=== PATIENT | male | born 2000 | race Caucasian/White ===

== ENCOUNTER 2021-10-27 00:23 | Inpatient (IN) | payer SELFPAY ==
[~2021-10-27] VITALS: Ht 170.2 cm; Wt 65.1 kg
[2021-10-27] VITALS (913 sets, daily range): BP systolic 103–115; BP diastolic 67–76; PULSE 73–94; TEMP 97.7–98.1; O2SAT 93–100
--- NOTE | 2021-10-27 01:45 | NUR ---
DURING ADMISSION PT STATED HE RECENTLY MOVED HERE FROM [facility] AND CURRENTLY DOES NOT HAVE A PHARMACY HERE IN [place]. SOCIAL WORK REFERRAL PLACED.
--- NOTE | 2021-10-27 01:45 | NUR ---
PT ADMITTED TO THE UNIT FROM [facility]. PT IS ALERT AND ORIENTED. VSS. PTS BLOOD GLUCOSE AT [facility] WAS ORIGINALLY 1313 AT 1930 10/26. BEFORE TRANSFER PTS BLOOD GLUCOSE WAS APPROXIMATELY 490. PER YESSENIA GERMAIN THE INSULIN DRIP WAS PUT ON STANDBY PRIOR TO ARRIVAL. ON ARRIVAL PTS BLOOD GLUCOSE WAS READING 374. MARCELLUS STILL RECOMMENDED THE INSULIN DRIP REMAIN ON STANDBY DUE TO BLOOD SUGAR CONTINUING TO DECREASE WITHOUT THE INSULIN. PT HAS 1/2 NS WITH 20MEQ OF POTASSIUM RUNNING AT 250ML/HR. PT EDUCATED TO NOT GET UP WITHOUT ASSISTANCE. CALL LIGHT WITHIN REACH. PTS BELONGINGS - PHONE, WALLET (KEPT ON HIS PERSON), JEANS, SHOES, AND SHIRT IN BEDROOM CABINET.
[2021-10-27 02:31] LABS: POTASSIUM 3.6 mmol/L (3.5-4.5)
[2021-10-27 02:37] LABS: BASO # 0.1 K/mm3 (0.0-0.2); BASO % 0.9 % (0.0-2.0); EOS # 0.2 K/mm3 (0.0-0.7); EOS % 1.7 % (0.0-4.0); GRAN # 5.4 K/mm3 (1.4-6.5); GRAN % 55.7 % (42.2-75.2); HEMOGLOBIN 14.2 g/dl (13.5-18.0); LYMPH % 31.4 % (20.0-51.0); MEAN CELL VOLUME 85 fl (80.0-100.0); MEAN CORPUSCULAR HEMOGLOBIN 33 pg (27-31); MEAN CORPUSCULAR HGB CONC 39 g/dl (33.0-37.0); MEAN PLATELET VOLUME 10.4 fl (7.4-10.4); PLATELET COUNT 284 K/mm3 (130-400); RED BLOOD COUNT 4.34 M/mm3 (4.20-5.60); REDCELL DISTRIBUTION WIDTH-CV 11.7 % (11.5-14.5)
[2021-10-27 02:41] LABS: HEMATOCRIT 36.9 % (42.0-52.0)
[2021-10-27 02:44] LABS: CREATININE, serum 1.09 mg/dL (0.72-1.25)
--- NOTE | 2021-10-27 02:45 | NUR ---
PTS BLOOD GLUCOSE READ 346. INSULIN DRIP STILL ON STANDBY AT THIS TIME.
[2021-10-27] MEDS ORDERED: GLUCOPHAGE1000 MG PO (02:46)
[2021-10-27] MEDS ORDERED: LEVEMIR SQ (02:48)
[2021-10-27 06:24] LABS: CALCIUM 7.8 mg/dL (8.4-10.2); CREATININE, serum 0.86 mg/dL (0.72-1.25); MAGNESIUM 1.6 mg/dL (1.6-2.6); PHOSPHOROUS 3.1 mg/dL (2.3-4.7); POTASSIUM 3.2 mmol/L (3.5-4.5)
== END 2021-10-27 17:49 | disposition home or self-care (01) | DRG 638 ==
LOC: IMCU 00:23 → ICU 01:35
PROVIDERS: Student in an Organized Health Care Education/Training Program; ADMIT Internal Medicine
DX: E11.00 Type 2 diabetes mellitus with hyperosmolarity without nonketotic hyperglycemic-hyperosmolar coma (NKHHC) (principal); N17.9 Acute kidney failure, unspecified; Z79.4 Long term (current) use of insulin; Z23 Encounter for immunization
CPT/HCPCS: J1644; J1815; J3475; J3480